=== PATIENT | female | born 1945 | race Caucasian/White ===

== ENCOUNTER 2018-04-03 05:23 | Observation (INO) ==
[2018-04-03] MEDS ORDERED: SALINE FLUSH 10ml SYRINGE IVF PRN ×2 (06:01→06:05)
[2018-04-03] MEDS ORDERED: DiltiaZEM 25 MG/5 ML INJECTION IVP ONE (06:06)
[2018-04-03] MEDS ORDERED: DiltiaZEM Drip 125 MG in NS 125 ML IV SCH (06:15)
--- NOTE | 2018-04-03 06:33 | Emergency Department Report ---
General Adult HPI - General Chief complaint: Shortness of Breath/Dyspnea Stated complaint: soa Time Seen by Provider: 04/03/18 05:57 Source: patient, family Mode of arrival: wheelchair Limitations: no limitations - History of Present Illness HPI narrative: 72 F presents to the emergency department with a chief complaint of ongoing shortness of breath for the past 2-3 days. Patient also notes a chronic cough which is normal for her. She denies any pain or discomfort. She also notes feeling like her heart is fluttering in her throat. She was at home when her symptoms began. Symptoms have been persistent in nature since onset. No other complaints or associated symptoms. She does note feeling more fatigued with exertion. She states that she does have a history of atrial fibrillation in the past. - Related Data Home Medications Medication Instructions Recorded Confirmed Carvedilol 25 mg PO BIDWM #0 tab 01/07/15 04/03/18 Potassium Chloride 10 meq PO BID #0 cap 01/07/15 04/03/18 dilTIAZem HCl [Cardizem Cd] 240 mg PO DAILY #0 cap 01/07/15 04/03/18 Furosemide [Lasix 40 mg Tab] 40 mg PO DAILY 01/10/18 04/03/18 Metformin [Glucophage] 500 mg PO DAILY 01/10/18 04/03/18 Pravastatin [Pravachol] 40 mg PO HS 01/10/18 04/03/18 Triamterene/Hctz 37.5/25 Tab 1 tab PO DAILY 01/10/18 04/03/18 [MAXZIDE-25 eqv] Warfarin Sodium 2.5 mg PO . DIRECTED 01/10/18 04/03/18 Previous Rx's Medication Instructions Recorded Oxycodone/Acetaminophen 5/325 1 tab PO Q6HPRN PRN #15 tab 01/10/18 [Percocet 5/325] predniSONE [Prednisone] 10 mg PO DAILY #30 tab 01/10/18 Allergies Allergy/AdvReac Type Severity Reaction Status Date / Time Penicillins Allergy Intermediate HIVES Verified 04/03/18 05:52 Iodinated Contrast- Oral and Allergy Unknown Verified 04/03/18 05:52 IV Dye Review of Systems Constitutional: Denies: fever, chills Eyes: Denies: eye pain, vision change ENT: Denies: ear pain, throat pain Cardiovascular: Reports: palpitations. Denies: chest pain Respiratory: Reports: cough (chronic). Denies: dyspnea Gastrointestinal: Denies: abdominal pain, nausea, vomiting, diarrhea Genitourinary: Denies: urgency, dysuria Musculoskeletal: Denies: back pain, arthralgia Integumentary: Denies: erythema, rash Neurological: Denies: headache, numbness, paresthesias Psychiatric: Denies: anxiety, depression Endocrine: Denies: polydipsia, polyuria Hematological/Lymphatic: Denies: easy bruising, lymphadenopathy Allergic/Immunologic: Denies: facial swelling, urticaria PFSH Patient Stated Medical History Peripheral Neuropathy Yes Cataracts Yes Hypertension Yes Asthma Yes Chronic Obstructive Pulmonary Yes Disease (COPD) Diabetes Mellitus Type 2 Yes Gastroesophageal Reflux Yes Disease Ulcer Yes Other GI Yes: HERNIA Other Yes: 'KIDNEY INFECTION' Osteoarthritis Yes Surgical History: ELIZABETH, Hysterectomy Family History: Reviewed and Noncontributory. - Social History Smoking status: Never smoker Substance use type: does not use Alcohol intake frequency: does not drink Physical Exam - Limitations Limitations: no limitations - General General appearance: alert, in no apparent distress - Normal Exams: Head:: Normocephalic without trauma Eyes:: Pupils are PERRLA w/ EOMI, No scleral icterus, irritation, or foreign bodies noted ENMT:: No facial trauma, nasal exudates, pharyngeal erythema, or exudates are noted Dental: No fractured, loose, or missing teeth noted Neck:: Full range of motion, without adenopathy, JVD, bruits or thyromegaly Chest/Respirations:: Clear all lazo, with good airflow, and symmetry bilaterally Cardiovascular:: Regular rate and rhythm (irregularly irregular rhythm), without murmur or gallop, Pulses 2+ all extremities, capillary refill, <2 seconds all extremities Abdomen:: Bowel sounds positive, soft, non-tender, non-distended, no hepatosplenomegaly, masses or bruits noted Lymphatic:: No lymphadenopathy, or lymphedema noted Musculoskeletal:: No tenderness, or deformity noted, good range of motion, all extremities Integumentary:: No rashes, hives, or bruising noted, hair and nails, without abnormality Neurological:: Patient is alert, and oriented, cranial nerves, motor/sensory/ cerebellar, exams w/o gross deficits, to observation Psychiatric:: Patient exhibits, appropriate attention, emotion and affect Course Vital Signs Temperature 97.9 F 04/03/18 05:23 Pulse Rate 130 H 04/03/18 05:23 Respiratory Rate 24 04/03/18 05:23 Blood Pressure 143/86 H 04/03/18 05:23 Pulse Oximetry 97 04/03/18 05:23 Temperature 97.9 F 04/03/18 05:23 Pulse Rate 130 H 04/03/18 05:23 Respiratory Rate 24 04/03/18 05:23 Blood Pressure 143/86 H 04/03/18 05:23 Pulse Oximetry 97 04/03/18 05:23 Medical Decision Making - MDM Narrative Medical decision making narrative: Labs / imaging were discussed in detail with the patient and family and questions are answered. Patient is given a bolus of 10 mg of Cardizem intravenously and Cardizem drip is initiated at 5 mg per hour and titrated to effect. Patient is ordered 2 g of magnesium intravenously times one. Any diuresis will be left to cardiology. Patient is discussed with Dr. Alvarez of cardiology who agrees to admit the patient to his service for further evaluation and treatment. Patient and family are in agreement with the current plan of management. Patient is admitted to the CCU in improved condition. No further orders from accepting physician who is in agreement with the current plan of management. HR - 104 bpm at time of admission with Cardiazem drip at 7.5 mg / hr. Patient is on Coumadin due to history of A-fib. - Differential Diagnosis AFIB, AFlutter, CHF, COPD, Metabolic disorder - Lab Data Result diagrams: 04/03/18 06:10 04/03/18 06:10 Lab Results 04/03/18 Range/Units 06:10 INR 1.52 H (0.92-1.18) - Radiology Data CXR - Impression: Mild pulmonary vascular congestion with a trace right effusion. - EKG Data EKG #1 EKG results narrative: Atrial fibrillation with rapid ventricular response. 136 bpm. No STEMI. Critical Care Time Critical Care Time: Yes Total Critical Care Time: 47 Attestation: 47 minutes of critical care time was assessed to the patient due the potential for decompensation, need for repeated assessment at the bedside, and complex medical decision making. Critical care time was spent treating the patient, documenting the medical record, updating the family, and making telephone calls on the patient's behalf. Patient was admitted to the ICU on a Cardizem drip for rate control of Afib. Disposition Clinical Impression: Atrial fibrillation with RVR Disposition: 02 To [facility] Condition: Improved Time of Disposition: 06:50 (Admit. Dr. Alvarez. ) - Seen By: physician
--- NOTE | 2018-04-03 07:21 | XRay Report ---
Indication: afib PROCEDURE: XR chest 1V: Encounter: Initial Comparison: None Findings: Trace fluid in the minor fissure with mild interstitial prominence. No lobar pneumonia. No pneumothorax. Cardiac silhouette is upper limits of normal to mildly enlarged. Mediastinal contours are within normal limits. Right shoulder replacement. Impression: Mild pulmonary vascular congestion with a trace right effusion. .
[2018-04-03 07:54] VITALS: BMI 35.2
[2018-04-03] MEDS: MAGNESIUM SULFATE 1gm PREMIX 1 GM/100 ML BAG IV SCH ×2 (08:25→09:15)
--- NOTE | 2018-04-03 10:20 | Cardiology History & Physical ---
History of Present Illness Chief complaint: dyspnea HPI: Agueda is a 72 year old female who see Dr. Carolynn Choi in [place] with a history of PAF, HTN, HLD, DM type II and obesity who presented to the ED with ongoing shortness of breath for the past 2-3 days. She also notes a chronic cough which is normal for her. She denies any pain or discomfort. She also notes feeling like her heart is fluttering in her throat. She was at home when her symptoms began and have been persistent in nature since onset. No other complaints or associated symptoms. She does note feeling more fatigued with exertion. Dr Alvarez was contacted for observation admission to CCU for further evaluation. She denies recent illness, fever, chills, sore throat, chest pain, pressure tightness, palpitations, N/V/D, dysuria Review of Systems - Constitutional Constitutional: Present: as per HPI - EENMT Eyes: Absent: change in vision Balance: Absent: vertigo Mouth/Throat: Present: sore throat - Cardiovascular Cardiovascular: Present: dyspnea on exertion, edema. Absent: chest pain, palpitations, syncope, orthopnea, heart murmur Rhythm: Present: abnormal rhythm Vascular: Present: pedal edema - Respiratory Respiratory: Present: cough, dyspnea, dyspnea on exertion - Gastrointestinal Gastrointestinal: Present: as per HPI - Genitourinary Genitourinary: Absent: dysuria - Integumentary/Breasts Integumentary: Absent: rash - Neurological Neurological: Absent: dizziness - Endocrine Endocrine: Absent: palpitations PFSH Patient Stated Medical History Peripheral Neuropathy Yes: feet Cataracts Yes Dental Problems Yes: dentures Cardiac Arrhythmia Yes: A Fib Hypertension Yes Asthma Yes Chronic Obstructive Pulmonary Yes Disease (COPD) Diabetes Mellitus Type 2 Yes Gastroesophageal Reflux Yes Disease Ulcer Yes Other GI Yes: HERNIA Other Yes: 'KIDNEY INFECTION' Osteoarthritis Yes Surgical History: ELIZABETH, Hysterectomy Family History: Mother - CHF Father - when patient was 6, leukemia Sister - Leukemia and DM Sister - COPD - Social History Smoking status: Never smoker Substance use type: does not use Alcohol intake frequency: does not drink Housing: house Household members: spouse Current occupational status: retired Current residence: Apartment/Private Home Medications Home Medications Medication Instructions Recorded Confirmed Type Carvedilol 25 mg PO BIDWM #0 tab 01/07/15 04/03/18 History Potassium Chloride 10 meq PO BID #0 cap 01/07/15 04/03/18 History dilTIAZem HCl [Cardizem Cd] 240 mg PO DAILY #0 cap 01/07/15 04/03/18 History Furosemide [Lasix 40 mg Tab] 40 mg PO DAILY 01/10/18 04/03/18 History Metformin [Glucophage] 500 mg PO DAILY 01/10/18 04/03/18 History Oxycodone/Acetaminophen 5/325 1 tab PO Q6HPRN PRN #15 tab 01/10/18 04/03/18 Rx [Percocet 5/325] Pravastatin [Pravachol] 40 mg PO HS 01/10/18 04/03/18 History Triamterene/Hctz 37.5/25 Tab 1 tab PO DAILY 01/10/18 04/03/18 History [MAXZIDE-25 eqv] Warfarin Sodium 2.5 mg PO . DIRECTED 01/10/18 04/03/18 History predniSONE [Prednisone] 10 mg PO DAILY #30 tab 01/10/18 04/03/18 Rx Ondansetron [Zofran Odt] 1 tab PO Q4HR PRN #10 tab 04/04/18 Rx Allergies Allergy/AdvReac Type Severity Reaction Status Date / Time Penicillins Allergy Intermediate HIVES Verified 04/03/18 05:52 Iodinated Contrast- Oral and Allergy Unknown Verified 04/03/18 05:52 IV Dye Exam Vital signs: Temperature 98.1 F 04/03/18 08:00 Pulse Rate 109 H 04/03/18 08:00 Respiratory Rate 20 04/03/18 08:00 Blood Pressure 139/77 04/03/18 08:00 Pulse Oximetry 97 04/03/18 08:00 - Constitutional no acute distress, obese, cooperative - Routine HEENT Exam Head: Present: normocephalic ENT: Present: mucous membranes moist - Routine Neck Exam Present: JVD. Absent: carotid bruit - Routine Chest/Breast/Axilla Exam Chest wall: Absent: tenderness - Routine Respiratory Exam Present: CTA bilaterally. Absent: dyspnea - Routine Cardiovascular Exam Present: tachycardia, irregularly irregular - Routine Abdominal Exam Present: soft, non tender - Routine Extremities Exam Present: edema - Routine Skin Exam Present: intact, dry, warm - Routine Neurological Exam Present: alert, oriented X3 - Routine Psychiatric Exam Present: normal affect, normal thought process Results 04/04/18 05:19 04/04/18 05:19 Cardiac Enzymes 04/03/18 Range/Units 06:10 AST 23 (14-36) U/L Troponin I < 0.012 (0-0.12) ng/ml CBC 04/03/18 Range/Units 06:10 WBC 8.3 (4.5-11.0) T/MM3 RBC 3.44 L (4.00-5.20) M/MM3 Hgb 12.1 (12-16) GM/DL Hct 34.8 L (36-46) % Plt Count 218 (130-400) T/MM3 Neut # (Auto) Not performed Lymph # (Auto) Not performed [place] # (Auto) Not performed Eos # (Auto) Not performed Baso # (Auto) Not performed Comprehensive Metabolic Panel 04/03/18 Range/Units 06:10 Sodium 142 (136-146) MEQ/L Potassium 4.1 (3.6-5) MEQ/L Chloride 106 (98-107) MEQ/L Carbon Dioxide 21 L (22-30) MEQ/L BUN 13.0 (7-17) MG/DL Creatinine 0.8 (0.7-1.2) mg/dL Glucose 146 H (65-110) MG/DL Calcium 9.7 (8.4-10.2) MG/DL AST 23 (14-36) U/L ALT 13 (1-35) U/L Alkaline Phosphatase 84 (38-126) U/L Total Protein 7.5 (6.3-8.2) g/dL Albumin 4.7 (3.5-5.0) g/dL Intake and Output 04/02/18 04/03/18 04/03/18 22:59 06:59 14:59 Intake Total 1.833 / 1.833 100.208 / 100.208 Balance 1.833 / 1.833 100.208 / 100.208 Intake: IV 1.833 / 1.833 100.208 / 100.208 DiltiaZEM Drip 125 mg In Ns 125 1.833 / 1.833 16.875 / 16.875 ml @ 5 mls/hr IV .Q24H [facility] Rx# :[id number] MAGNESIUM SULFATE 1gm PREMIX 1 83.333 / 83.333 gm In 100 ml @ 100 mls/hr IV Q1H [facility] Rx#:[id number] Other: Weight 205 lb 11.06 oz 198 lb 10.184 oz Patient Weight 04/04/18 06:59 Weight 198 lb 10.184 oz - Imaging and Cardiology Echo: pending Imaging & Cardiology Narrative: Date of Exam: 04/03/18 Ordering Provider: Raymon Germain DO Type of Exam(s): XR chest 1V Reason for Exam(s): afib Indication: afib PROCEDURE: XR chest 1V: Encounter: Initial Comparison: None Findings: Trace fluid in the minor fissure with mild interstitial prominence. No lobar pneumonia. No pneumothorax. Cardiac silhouette is upper limits of normal to mildly enlarged. Mediastinal contours are within normal limits. Right shoulder replacement. Impression: Mild pulmonary vascular congestion with a trace right effusion. 04/03/18 10:54 04/04/18 11:55 Date of Exam: 04/03/18 Type of Exam(s): US echo doppler complete DATE OF PROCEDURE April 03, 2018 This is a two-dimensional echo with spectral Doppler, color-flow and M-mode. It was obtained in a patient with atrial fibrillation. Left atrium is dilated. Left ventricle end-diastolic dimension is normal. Left ventricular wall thickness is at the upper limits of normal. Left ventricular systolic function is normal with ejection fraction of 61%. Right atrium is dilated. Right ventricle is normal. Aortic root dimension is normal. Mitral annulus is calcified. Mitral valve leaflets are sclerotic with mild mitral regurgitation. Aortic valve is a trileaflet structure with fibrocalcific changes with no stenosis or insufficiency. Tricuspid valve shows mild to moderate tricuspid regurgitation with severe pulmonary hypertension with estimated pulmonary artery systolic pressure of 68. Pulmonary valve shows no pulmonary insufficiency. There is no pericardial effusion. IMPRESSION 1. Biatrial dilation. 2. Normal LV systolic function with ejection fraction of 61%. 3. Mitral annulus calcification with mitral sclerosis and mild mitral regurgitation. 4. Aortic sclerosis. 5. Mild to moderate tricuspid regurgitation with severe pulmonary hypertension with estimated pulmonary artery systolic pressure of 68. EKG interpretations - EKG EKG shows: atrial fibrillation (with RVR) Hospital Course This is a general summary of the patient's hospital course. For more details refer to the complete medical record. Time spent with patient: 25 - 35 minutes Assessment and Plan - Attestation Attestation Narrative: 04/11/18 09:47 Recommendation After examining the patient I agree with the above assessment. I am involved in the formulation of the patient's plan of care.
[2018-04-03] MEDS ORDERED: WARFARIN 2.5 MG TABLET PO SCH (10:30)
[2018-04-03] MEDS ORDERED: FUROSEMIDE 40 MG TABLET PO SCH (10:45)
[2018-04-03] MEDS: FUROSEMIDE 40 MG/4 ML INJECTION IVP SCH ×3 (11:31→20:12)
[2018-04-03] MEDS: METFORMIN 500 MG TABLET PO SCH (11:34)
[2018-04-03] MEDS: PredniSONE 10 MG TABLET PO SCH (11:34)
[2018-04-03] MEDS: TRIAMTERENE/HCTZ 37.5 MG-25 MG TABLET PO SCH (11:35)
[2018-04-03] MEDS: CARVEDILOL 25 MG TABLET PO SCH ×2 (11:35→17:28)
--- NOTE | 2018-04-03 14:58 | Echocardiogram ---
DATE OF PROCEDURE April 03, 2018 This is a two-dimensional echo with spectral Doppler, color-flow and M-mode. It was obtained in a patient with atrial fibrillation. Left atrium is dilated. Left ventricle end-diastolic dimension is normal. Left ventricular wall thickness is at the upper limits of normal. Left ventricular systolic function is normal with ejection fraction of 61%. Right atrium is dilated. Right ventricle is normal. Aortic root dimension is normal. Mitral annulus is calcified. Mitral valve leaflets are sclerotic with mild mitral regurgitation. Aortic valve is a trileaflet structure with fibrocalcific changes with no stenosis or insufficiency. Tricuspid valve shows mild to moderate tricuspid regurgitation with severe pulmonary hypertension with estimated pulmonary artery systolic pressure of 68. Pulmonary valve shows no pulmonary insufficiency. There is no pericardial effusion. IMPRESSION 1. Biatrial dilation. 2. Normal LV systolic function with ejection fraction of 61%. 3. Mitral annulus calcification with mitral sclerosis and mild mitral regurgitation. 4. Aortic sclerosis. 5. Mild to moderate tricuspid regurgitation with severe pulmonary hypertension with estimated pulmonary artery systolic pressure of 68. MTDD
[2018-04-03] MEDS ORDERED: WARFARIN - PHARMACY CONSULT MC ONE (15:04)
--- NOTE | 2018-04-03 15:32 | Pharmacy Consult ---
Pharmacy Consult-Warfarin - Laboratory Information 04/03/18 04/03/18 04/03/18 06:10 06:10 06:10 Hgb 12.1 Hct 34.8 L INR 1.52 H AST 23 ALT 13 Albumin 4.7 - Consult Information COUMADIN CONSULT (Initial): Dx: A.Fib Baseline INR = 1.52. Will give Warfarin 4mg today. Thank you.
[2018-04-03] MEDS ORDERED: WARFARIN 4 MG TABLET PO ONE (15:45)
[2018-04-03] MEDS: ENOXAPARIN 40 MG/0.4 ML INJECTION SQ SCH (16:16)
[2018-04-03] MEDS: Oxycodone/Acetaminophen 5/325 1 TAB PO PRN ×2 (17:46→23:48)
[2018-04-03] MEDS ORDERED: PRAVASTATIN 40 MG TABLET PO SCH (21:00)
[2018-04-04] MEDS: Oxycodone/Acetaminophen 5/325 1 TAB PO PRN (07:35)
--- NOTE | 2018-04-04 07:47 | Pharmacy Consult ---
Pharmacy Consult-Warfarin - Laboratory Information 04/03/18 04/03/18 04/03/18 06:10 06:10 06:10 Hgb 12.1 Hct 34.8 L INR 1.52 H AST 23 ALT 13 Albumin 4.7 04/04/18 04/04/18 05:19 05:19 Hgb 11.0 L Hct 31.3 L INR 1.82 H AST ALT Albumin - Consult Information INR below target range. Warfarin 4mg po ordered for noon today. Will continue to follow. Thank you.
[2018-04-04] MEDS: METFORMIN 500 MG TABLET PO SCH (09:06)
[2018-04-04] MEDS: TRIAMTERENE/HCTZ 37.5 MG-25 MG TABLET PO SCH (09:06)
[2018-04-04] MEDS: PredniSONE 10 MG TABLET PO SCH (09:06)
[2018-04-04] MEDS: CARVEDILOL 25 MG TABLET PO SCH ×2 (09:07→17:36)
[2018-04-04] MEDS: ENOXAPARIN 40 MG/0.4 ML INJECTION SQ SCH (09:08)
[2018-04-04] MEDS: FUROSEMIDE 40 MG/4 ML INJECTION IVP SCH (09:08)
[2018-04-04] MEDS: MAGNESIUM SULFATE 1gm PREMIX 1 GM/100 ML BAG IV SCH ×2 (09:43→10:44)
[2018-04-04 11:04] VITALS: BP 128/77
[2018-04-04] MEDS ORDERED: WARFARIN 4 MG TABLET PO SCH (12:00)
--- NOTE | 2018-04-04 13:22 | Discharge Summary ---
<Floridalma Caldwell - Last Filed: 04/07/18 10:49> Discharge Information Date of admission: 04/03/18 07:05 Anticipated date of discharge: 04/04/18 Attending Physician: Gaudencio Alvarez MD Primary care physician: Sabrina Degroot DO Consults: 04/04/18 05:43 Case Management Consult [CONS] Routine Reason For Exam: overnight oximetry - Discharge Diagnosis (1) Atrial fibrillation with RVR Status: Acute (2) Essential (primary) hypertension Status: Chronic (3) Mixed hyperlipidemia Status: Chronic (4) Type 2 diabetes mellitus without complications Status: Chronic (5) Obesity (BMI 30-39.9) Status: Chronic (6) Acute diastolic (congestive) heart failure Status: Acute A Fib with RVR, acute diastolic HF, HTN, HLD, DM, Obesity - Laboratory Labs: 04/04/18 05:19 04/04/18 05:19 History of Present Illness HPI: Agueda is a 72 year old female who see Dr. Carolynn Choi in [place] with a history of PAF, HTN, HLD, DM type II and obesity who presented to the ED with ongoing shortness of breath for the past 2-3 days. She also notes a chronic cough which is normal for her. She denies any pain or discomfort. She also notes feeling like her heart is fluttering in her throat. She was at home when her symptoms began and have been persistent in nature since onset. No other complaints or associated symptoms. She does note feeling more fatigued with exertion. Dr Alvarez was contacted for observation admission to CCU for further evaluation. She denies recent illness, fever, chills, sore throat, chest pain, pressure tightness, palpitations, N/V/D, dysuria Hospital Course This is a general summary of the patient's hospital course. For more details refer to the complete medical record. Hospital course: Acute diastolic (congestive) heart failure Current visit: Yes Status: Acute - Dyspnea, JVD and LE edema - Echo: EF 61%. - Diurese with Lasix 40mg IV q12H - Monitor renal and electrolytes Atrial fibrillation with RVR Current visit: Yes Status: Acute - Known A Fib, normally rate controlled on Diltiazem and Carvedilol, chronic anticoagulation on warfarin, PCP manages INR - currently on Cardizem 10mg IV ip, - Continue home meds for rate control and wean drip if possible - Coumadin per pharmacy consult - Lovenox 40mg SQ for DVT prophylaxis - 2D echo Essential (primary) hypertension Current visit: Yes Status: Chronic - Well controlled on current therapy, continue current therapy Mixed hyperlipidemia Current visit: Yes Status: Chronic - takes pravastatin, PCP manages Type 2 diabetes mellitus without complications Current visit: Yes Status: Chronic - Continue Metformin. Obesity (BMI 30-39.9) Current visit: Yes Status: Chronic 04/04/18 Rate well controlled on home medications alone. Diuresed well with Lasix and denies dyspnea, is on room air and able to lay nearly flat Given Lovenox for DVT prophylaxis and received 4mg Coumadin per pharmacy consult , INR 1.8 today Discharge to home in the care of herself with follow up INR on Saturday. Care returned to Dr. John and Dr. Choi Had green emesis prior to discharge was evaluated by hospital doctor, Dr. Ibrahim who feel it is an isolated incidence and recommended some Zofran ODT and discharge to home Time spent with patient: 25 - 35 minutes Resuscitation Status: Full Code Exam Vital signs: Temperature 97.6 F 04/04/18 07:15 Pulse Rate 70 04/04/18 12:00 Respiratory Rate 26 H 04/04/18 11:00 Blood Pressure 128/77 04/04/18 09:00 Pulse Oximetry 93 04/04/18 11:00 - Constitutional no acute distress, well nourished, cooperative - Routine HEENT Exam Head: Present: normocephalic ENT: Present: mucous membranes moist - Routine Neck Exam Absent: JVD - Routine Chest/Breast/Axilla Exam Chest wall: Absent: tenderness - Routine Respiratory Exam Present: CTA bilaterally. Absent: dyspnea, rales, wheezes - Routine Cardiovascular Exam Present: no murmur, irregularly irregular - Routine Abdominal Exam Present: soft, non tender - Routine Extremities Exam Present: edema (trace bilateral) - Routine Skin Exam Present: intact, dry, warm - Routine Neurological Exam Present: alert, oriented X3 - Routine Psychiatric Exam Present: normal affect, normal thought process Results 04/04/18 05:19 04/04/18 05:19 CBC 04/04/18 Range/Units 05:19 WBC 6.3 (4.5-11.0) T/MM3 RBC 3.08 L (4.00-5.20) M/MM3 Hgb 11.0 L (12-16) GM/DL Hct 31.3 L (36-46) % Plt Count 192 (130-400) T/MM3 Comprehensive Metabolic Panel 04/04/18 Range/Units 05:19 Sodium 139 (136-146) MEQ/L Potassium 3.6 (3.6-5) MEQ/L Chloride 100 (98-107) MEQ/L Carbon Dioxide 27 (22-30) MEQ/L BUN 16.0 (7-17) MG/DL Creatinine 1.0 D (0.7-1.2) mg/dL Glucose 119 H (65-110) MG/DL Calcium 9.2 (8.4-10.2) MG/DL Intake and Output 04/03/18 04/04/18 04/04/18 22:59 06:59 14:59 Intake Total 135 / 135 360 / 360 560 / 560 Output Total 800 / 800 250 / 250 200 / 200 Balance -665 / -665 110 / 110 360 / 360 Intake: IV 35 / 35 200 / 200 DiltiaZEM Drip 125 mg In Ns 125 35 / 35 ml @ 5 mls/hr IV .Q24H GAIL Rx# :[id number] MAGNESIUM SULFATE 1gm PREMIX 1 200 / 200 gm In 100 ml @ 100 mls/hr IV Q1H GAIL Rx#:[id number] Oral 100 / 100 360 / 360 360 / 360 Output: Urine 800 / 800 250 / 250 200 / 200 Other: Urine Appearance Clear Clear Urine Color Yellow Dark Yellow Urine Odor Normal Normal # Voids 1 # Incontinent Voids 1 Weight 195 lb 12.328 oz Patient Weight 04/05/18 06:59 Weight 195 lb 12.328 oz - Imaging and Cardiology Imaging & Cardiology Narrative: Date of Exam: 04/03/18 Type of Exam(s): US echo doppler complete DATE OF PROCEDURE April 03, 2018 This is a two-dimensional echo with spectral Doppler, color-flow and M-mode. It was obtained in a patient with atrial fibrillation. Left atrium is dilated. Left ventricle end-diastolic dimension is normal. Left ventricular wall thickness is at the upper limits of normal. Left ventricular systolic function is normal with ejection fraction of 61%. Right atrium is dilated. Right ventricle is normal. Aortic root dimension is normal. Mitral annulus is calcified. Mitral valve leaflets are sclerotic with mild mitral regurgitation. Aortic valve is a trileaflet structure with fibrocalcific changes with no stenosis or insufficiency. Tricuspid valve shows mild to moderate tricuspid regurgitation with severe pulmonary hypertension with estimated pulmonary artery systolic pressure of 68. Pulmonary valve shows no pulmonary insufficiency. There is no pericardial effusion. IMPRESSION 1. Biatrial dilation. 2. Normal LV systolic function with ejection fraction of 61%. 3. Mitral annulus calcification with mitral sclerosis and mild mitral regurgitation. 4. Aortic sclerosis. 5. Mild to moderate tricuspid regurgitation with severe pulmonary hypertension with estimated pulmonary artery systolic pressure of 68. 04/04/18 13:22 Discharge Plan - Med Rec/Dispo Referrals/Follow Up: Sabrina Degroot DO [Primary Care Provider] - 3 Days (Recheck appt. on SaturdayApril 07 check in at 1345, appt. at 1400) [facility] Instructions: [facility] Congestive Heart Failure, A-fib (Atrial Fibrillation) (DC) Prescriptions: New Ondansetron [Zofran Odt] 1 tab PO Q4HR PRN #10 tab PRN Reason: Nausea Continue Pravastatin [Pravachol] 40 mg PO HS Metformin [Glucophage] 500 mg PO DAILY Furosemide [Lasix 40 mg Tab] 40 mg PO DAILY Oxycodone/Acetaminophen 5/325 [Percocet 5/325] 1 tab PO Q6HPRN PRN #15 tab PRN Reason: Pain Carvedilol 25 mg PO BIDWM #0 tab dilTIAZem HCl [Cardizem Cd] 240 mg PO DAILY #0 cap Potassium Chloride 10 meq PO BID #0 cap Triamterene/Hctz 37.5/25 Tab [MAXZIDE-25 eqv] 1 tab PO DAILY Warfarin Sodium 2.5 mg PO . DIRECTED predniSONE [Prednisone] 10 mg PO DAILY #30 tab - Disposition 01 Discharged Home, Self-Care - Dismissal Complete Discharge Instructions are:: Complete <Gaudencio Alvarez - Last Filed: 04/11/18 10:06> Discharge Information Date of admission: 04/03/18 07:05 Attending Physician: Gaudencio Alvarez MD Primary care physician: Sabrina Degroot DO Consults: 04/04/18 05:43 Case Management Consult [CONS] Routine Reason For Exam: overnight oximetry 04/04/18 16:45 Physician Consult [CONS] Routine Consulting Provider: Joaquin Ibrahim Reason For Exam: N/V Ordering Provider has Notified Director Of Infection Control: Yes - Discharge Diagnosis (1) Atrial fibrillation with RVR Status: Acute (2) Essential (primary) hypertension Status: Chronic (3) Mixed hyperlipidemia Status: Chronic (4) Type 2 diabetes mellitus without complications Status: Chronic (5) Obesity (BMI 30-39.9) Status: Chronic (6) Acute diastolic (congestive) heart failure Status: Acute - Laboratory Labs: 04/04/18 05:19 04/04/18 05:19 Hospital Course This is a general summary of the patient's hospital course. For more details refer to the complete medical record. Exam Vital signs: Temperature 97.5 F 04/04/18 11:15 Pulse Rate 74 04/04/18 16:00 Respiratory Rate 27 H 04/04/18 15:00 Blood Pressure 128/77 04/04/18 09:00 Pulse Oximetry 98 04/04/18 15:00 Results 04/04/18 05:19 04/04/18 05:19 Attestation Narriative - Attestation Attestation Narrative: 04/11/18 10:06 Recommendation After examining the patient I agree with the above assessment. I am involved in the formulation of the patient's plan of care.
[2018-04-04 15:11] VITALS: RESP 27; TEMP 97.5; O2SAT 98
[2018-04-04 17:12] VITALS: PULSE 74
== END 2018-04-04 17:50 | disposition home or self-care (01) ==
LOC: ED 05:23 → EDHOLD 05:23 → CCU 07:30 → EDHOLD 07:30
PROVIDERS: ADMIT Internal Medicine Cardiovascular Disease; ATTEND Internal Medicine Cardiovascular Disease